=== PATIENT | female | born 1970 | race Caucasian/White ===

== ENCOUNTER 2017-01-20 09:48 | Inpatient (IN) | payer MEDICAID ==
[~2017-01-20] VITALS: Ht 170.2 cm; Wt 108.4 kg
[2017-01-20] MEDS ORDERED: methylPREDNISolone SOD SUCC 125 MG/2 ML ONE (10:25)
[2017-01-20] MEDS ORDERED: ACETAMINOPHEN 500 MG TABLET ONE (10:25)
[2017-01-20] MEDS ORDERED: ALBUTEROL/IPRATROPIUM 2.5MG/0.5MG, 3 ML ONE ×2 (10:26→12:22)
[2017-01-20] MEDS ORDERED: SODIUM CHLORIDE 0.9% 1,000ML IVBOLUS ONE (10:30)
[2017-01-20] MEDS ORDERED: methylPREDNISolone SOD SUCC 125 MG/2 ML IVP ONE (10:30)
[2017-01-20] MEDS ORDERED: ACETAMINOPHEN 500 MG TABLET PO ONE (10:30)
[2017-01-20] MEDS ORDERED: ALBUTEROL/IPRATROPIUM 2.5MG/0.5MG, 3 ML NPPB ONE ×2 (10:30→12:00)
[2017-01-20] MEDS ORDERED: SODIUM CHLORIDE FLUSH 10ML SYR IVF ONE (10:30)
[2017-01-20 10:45] LABS: RAPID INFLUENZA A POSITIVE (Negative); RAPID INFLUENZA B Negative (Negative)
[2017-01-20 11:05] LABS: HEMATOCRIT 27.4 % (34.6-47.8); HEMOGLOBIN 8.4 g/dL (11.7-16.4); WHITE BLOOD COUNT 8.2 x10^3/uL (3.4-10)
[2017-01-20 11:15] LABS: ASPARTATE AMINO TRANSFERASE 12 U/L (15-37); BLOOD UREA NITROGEN 9 mg/dL (7-18)
[2017-01-20 11:22] LABS: DIFF TOTAL CELLS COUNTED 100 CELL DIFF
[2017-01-20 11:25] LABS: ANISOCYTOSIS 1+; HYPOCHROMIA 1+; MICROCYTOSIS 2+; POLYCHROMASIA 1+; VERIFY COUNTS? YES
[2017-01-20 11:26] LABS: OVALOCYTES 1+; POIKILOCYTOSIS 1+
[2017-01-20] MEDS ORDERED: [UNRECOGNIZED DRUG - REMARK] PO (12:14)
[2017-01-20] MEDS ORDERED: BECL8.7A6 INH (12:14)
[2017-01-20] MEDS ORDERED: SODIUM CHLORIDE FLUSH 10ML SYR IVF PRN (14:00)
[2017-01-20] MEDS ORDERED: ONDANSETRON 2MG/ML, 2ML IVPush PRN (14:30)
[2017-01-20] MEDS ORDERED: ONDANSETRON ODT 4 MG PO PRN (14:30)
[2017-01-20] MEDS ORDERED: ALBUTEROL/IPRATROPIUM 2.5MG/0.5MG, 3 ML NPPB PRN (15:30)
[2017-01-20] MEDS ORDERED: ALBU18HF INH (15:49)
[2017-01-20] MEDS ORDERED: ALBU8.5H8 INH (15:49)
[2017-01-20] MEDS ORDERED: QUET100T PO (15:49)
[2017-01-20] MEDS ORDERED: LEVE500T8 PO (15:49)
[2017-01-20] MEDS ORDERED: BUDE10.2 IH (15:49)
[2017-01-20 15:54] VITALS: BP 107/69
[2017-01-20] MEDS: ENOXAPARIN 40 MG/0.4 ML SQ SCH (16:50)
[2017-01-20] MEDS: SODIUM CHLORIDE 0.9% 1,000 ML IV SCH (16:51)
[2017-01-20] MEDS: NICOTINE 7 MG/24 HR PATCH.TD24 TD SCH (16:51)
[2017-01-20 19:10] VITALS: BP 112/74
[2017-01-20] MEDS: ALBUTEROL/IPRATROPIUM 2.5MG/0.5MG, 3 ML NPPB SCH ×2 (19:11→23:30)
[2017-01-20] MEDS: OSELTAMIVIR 75 MG CAPSULE PO SCH (21:12)
[2017-01-21 01:11] VITALS: BP 124/75
[2017-01-21 05:47] LABS: BLOOD UREA NITROGEN 14 mg/dL (7-18); HEMOGLOBIN 7.8 g/dL (11.7-16.4); WHITE BLOOD COUNT 12.4 x10^3/uL (3.4-10)
[2017-01-21 05:51] LABS: ASPARTATE AMINO TRANSFERASE 11 U/L (15-37)
[2017-01-21] MEDS: ALBUTEROL/IPRATROPIUM 2.5MG/0.5MG, 3 ML NPPB SCH ×5 (06:40→22:00)
[2017-01-21 07:12] VITALS: BP 126/80
[2017-01-21] MEDS: SODIUM CHLORIDE 0.9% 1,000 ML IV SCH ×2 (07:29→20:01)
[2017-01-21] MEDS ORDERED: QUETIAPINE 100MG TABLET PO SCH (09:00)
[2017-01-21] MEDS: LEVETIRACETAM 500 MG TABLET PO SCH (10:13)
[2017-01-21] MEDS: OSELTAMIVIR 75 MG CAPSULE PO SCH ×2 (10:14→20:02)
[2017-01-21] MEDS: ACETAMINOPHEN 325 MG TABLET PO PRN (11:58)
[2017-01-21 13:02] VITALS: BP 120/76
[2017-01-21] MEDS: NICOTINE 7 MG/24 HR PATCH.TD24 TD SCH (15:04)
[2017-01-21] MEDS: ENOXAPARIN 40 MG/0.4 ML SQ SCH (15:08)
[2017-01-21 19:34] VITALS: BP 117/77
[2017-01-21] MEDS: QUETIAPINE 100MG TABLET PO SCH (20:02)
[2017-01-22 01:15] VITALS: BP 110/72
[2017-01-22 06:42] VITALS: BP 127/77
[2017-01-22] MEDS: SODIUM CHLORIDE 0.9% 1,000 ML IV SCH ×2 (06:42→16:15)
[2017-01-22] MEDS: ALBUTEROL/IPRATROPIUM 2.5MG/0.5MG, 3 ML NPPB SCH ×5 (06:50→22:00)
[2017-01-22] MEDS: LEVETIRACETAM 500 MG TABLET PO SCH (09:37)
[2017-01-22] MEDS: OSELTAMIVIR 75 MG CAPSULE PO SCH ×2 (09:37→20:30)
[2017-01-22 12:08] VITALS: BP 130/81
[2017-01-22] MEDS ORDERED: OSEL75CA PO (13:37)
[2017-01-22] MEDS: ENOXAPARIN 40 MG/0.4 ML SQ SCH (16:26)
[2017-01-22] MEDS: NICOTINE 7 MG/24 HR PATCH.TD24 TD SCH (16:26)
[2017-01-22 18:56] VITALS: BP 133/85
[2017-01-22] MEDS: QUETIAPINE 100MG TABLET PO SCH (20:29)
[2017-01-22] MEDS: ACETAMINOPHEN 325 MG TABLET PO PRN (20:34)
[2017-01-23 01:35] VITALS: BP 102/71
[2017-01-23] MEDS: SODIUM CHLORIDE 0.9% 1,000 ML IV SCH ×2 (02:50→17:34)
[2017-01-23 05:36] LABS: HEMATOCRIT 23.5 % (34.6-47.8); HEMOGLOBIN 7.2 g/dL (11.7-16.4); WHITE BLOOD COUNT 8.3 x10^3/uL (3.4-10)
[2017-01-23] MEDS ORDERED: FLU VACC QS2017-18 (36MOS+) UP/PF 0.5 ML IM-VACC ONE ×2 (06:30)
[2017-01-23] MEDS ORDERED: PNEUMOCOCCAL 23 VACCINE IM-VACC ONE ×2 (06:30)
[2017-01-23] MEDS: ALBUTEROL/IPRATROPIUM 2.5MG/0.5MG, 3 ML NPPB SCH ×4 (06:50→19:20)
[2017-01-23] MEDS: OSELTAMIVIR 75 MG CAPSULE PO SCH ×2 (08:22→21:28)
[2017-01-23] MEDS: LEVETIRACETAM 500 MG TABLET PO SCH (08:23)
[2017-01-23 08:24] VITALS: BP 139/84
[2017-01-23 14:30] VITALS: BP 131/92
[2017-01-23] MEDS: ENOXAPARIN 40 MG/0.4 ML SQ SCH (14:47)
[2017-01-23] MEDS: NICOTINE 7 MG/24 HR PATCH.TD24 TD SCH (17:34)
[2017-01-23 19:41] VITALS: BP 126/83
[2017-01-23] MEDS: ACETAMINOPHEN 325 MG TABLET PO PRN (21:28)
[2017-01-23] MEDS: QUETIAPINE 100MG TABLET PO SCH (21:28)
[2017-01-24 00:37] VITALS: BP 122/78
[2017-01-24 08:04] VITALS: BP 130/88
[2017-01-24] MEDS: ALBUTEROL/IPRATROPIUM 2.5MG/0.5MG, 3 ML NPPB SCH ×3 (08:20→16:45)
[2017-01-24] MEDS: LEVETIRACETAM 500 MG TABLET PO SCH (09:30)
[2017-01-24] MEDS: OSELTAMIVIR 75 MG CAPSULE PO SCH (09:32)
[2017-01-24] MEDS: SODIUM CHLORIDE 0.9% 1,000 ML IV SCH (09:33)
[2017-01-24 14:00] VITALS: BP 169/80
[2017-01-24 16:18] VITALS: BP 148/91
== END 2017-01-24 17:15 | disposition left against medical advice (07) | DRG 871 ==
LOC: ED 13:46 → 3NE 13:51
PROVIDERS: ADMIT Family Medicine; ATTEND Family Medicine
DX: A41.9 Sepsis, unspecified organism (principal); J96.01 Acute respiratory failure with hypoxia; N17.9 Acute kidney failure, unspecified; D50.9 Iron deficiency anemia, unspecified; D53.9 Nutritional anemia, unspecified; F17.210 Nicotine dependence, cigarettes, uncomplicated; E74.39 Other disorders of intestinal carbohydrate absorption; G40.909 Epilepsy, unspecified, not intractable, without status epilepticus; J10.1 Influenza due to other identified influenza virus with other respiratory manifestations; R73.9 Hyperglycemia, unspecified; J42 Unspecified chronic bronchitis; N18.9 Chronic kidney disease, unspecified; E66.9 Obesity, unspecified; J45.909 Unspecified asthma, uncomplicated; Z53.21 Procedure and treatment not carried out due to patient leaving prior to being seen by health care provider; Z59.0 Homelessness; Z82.3 Family history of stroke; Z82.49 Family history of ischemic heart disease and other diseases of the circulatory system; Z99.3 Dependence on wheelchair; Z68.37 Body mass index [BMI] 37.0-37.9, adult; Z88.0 Allergy status to penicillin
CPT/HCPCS: 36415; 71010; 80053; 83036; 83605; 84145; 85025; 85610; 85730; 87040; 87400; 90686; 90732; 93005; 94640; 96361; 96374; J1650; J7620; J2930; J7030; J7512